=== PATIENT | male | born 1960 | race Caucasian/White ===

== ENCOUNTER 2025-05-03 13:19 | Outpatient (AMB) | payer OTHER, SELFPAY ==
--- NOTE | 2025-05-03 13:24 | MHC.OFFVIS ---
Intake Visit Reasons: Groin pain Intake Note: New Patient is present for groin pain Urology Rx: none PVR:none Blood Thinners:none Imaging completed: none Labs done : PSA 1.96 Tenant Selector Required: No Accompanied by: Self / Same As Patient Allergies No Known Allergies Allergy (Verified 05/03/25 13:25) HPI Comments Details: Ben is a pleasant male. He is a patient of Dr. Vallejo. He is seen for the following urologic conditions - right testicular discomfort - Peyronie's disease Discussed age-related changes to voiding pattern Effective voiding parameters highlighted Reassurance provided regarding testicular pain P.r.n. follow-up PSA 1.9 Testicular discomfort On examination has scarring of testicular head Point discomfort on exam Reassurance provided Anti-inflammatory provided Discussed potential surgical correction Peyronie's disease Minor hourglassing at base of penis Does not interfere with sexual activity Results AMB Urinalysis, Automated UA Leukoctes 0 Diane/uL Last Edit by JESENIA Wilhelm on 05/03/25 16:06 UA Nitrite Negative Last Edit by JESENIA Wilhelm on 05/03/25 16:06 UA Urobilinogen 3.5 mg/dL Last Edit by JESENIA Wilhelm on 05/03/25 16:06 UA Protein 0 mg/dL Last Edit by JESENIA Wilhelm on 05/03/25 16:06 UA pH 6.0 Last Edit by JESENIA Wilhelm on 05/03/25 16:06 UA Blood 0 Binh/uL Last Edit by JESENIA Wilhelm on 05/03/25 16:06 UA Specific [place] 1.015 Last Edit by JESENIA Wilhelm on 05/03/25 16:06 UA Ketone Last Edit by JESENIA Wilhelm on 05/03/25 16:06 UA Bilirubin 0 mg/dL Last Edit by JESENIA Wilhelm on 05/03/25 16:06 UA Glucose 0 mg/dL Last Edit by JESENIA Wilhelm on 05/03/25 16:06 Results Reviewed Results Reviewed: Laboratory Last Values Urine pH (Auto) 6.0 05/03/25 16:06 Specific [place] (Auto) 1.015 05/03/25 16:06 Urine Protein (Auto) 0 mg/dL 05/03/25 16:06 Glucose (UA)(Auto) 0 mg/dL 05/03/25 16:06 Urine Blood (Auto) 0 Binh/uL 05/03/25 16:06 Urine Nitrite (Auto) Negative 05/03/25 16:06 Urine Bilirubin (Auto) 0 mg/dL 05/03/25 16:06 Urine Urobilinogen (Auto) 3.5 mg/dL 05/03/25 16:06 Leukocyte Esterase (Auto) 0 Diane/uL 05/03/25 16:06 Assessment & Plan Assessment & Plan (1) Epididymal pain: Code(s): N50.819 - Testicular pain, unspecified Category: Medical Plan P.r.n. follow-up Orders: Orders AMB Urinalysis Automated Today Z13.9 - Encounter for screening, unspecified Medications: New naproxen (Naprosyn) 500 mg PO Q12H PRN 60 tabs 0RF pain 30 days N50.819 - Testicular pain, unspecified, S39.91XA - Unspecified injury of abdomen, initial encounter Patient Instructions: This note is constructed using voice recognition software. While every effort has been made to ensure accuracy customer support specialist errors may have been included. Imaging studies, laboratory and physical exam results were discussed and reviewed in detail. No major barriers to patient understanding were identified. An opportunity to ask questions regarding the treatment plan was provided. All questions were answered. The patient expressed understanding and agreement with the above treatment plan. The patient is aware they should contact our office by phone for worsening of their current condition or the appearance of new urologic symptoms. Compliance is encouraged with any medications and followup testing that is ordered. It is a privilege to participate in the urologic care of your patient. If you have any questions or concerns regarding treatment for the above conditions, or other urologic issues, please do not hesitate to contact me. The office telephone contact is [phone]. Sincerely, Dr Gregory Roberson MD, MICHELLE [facility] - Urology Compassionate Specialist Care for the Genitourinary System Coding Level of Care Code New Pt Level 3 (70626) Diagnoses Epididymal pain N50.819
--- OUTSIDE RECORDS SUMMARY | 2025-05-03 17:02 | XMS_ITS | Encounter Summary ---
Author Organization [facility] Address [address] [facility] [address] [place] [id number] Phone Care Team Providers Care Grief Counsellor Name Role Phone Abebe Vallejo MD Primary Care Provider [phone] Encounter Details Date Type Department Care Team (Late st Contact Info) Description 2023 Procedure Pass [facility], [facility] [address] [place] [address] Social History Tobacco Use Types Packs/Day Years Used Date Smoking Tobacco: Former Cigarettes 1 10 3 1982 Smokeless Tobacco: Never Alcohol Use Standard Drinks/Week Comments Yes 0 (1 standard drink = 0.6 oz pur e alcohol) 1 bottle of wine daily Child or Family Care Answer Date Record ed Do you have problems with on e of the following making it difficult for you to work, study, or receive health care? No 12/10/2022 Education Answer Date Recorded Are you interested in help w ith more adult education (for example, completing high school, GED, job training, learning the Romansh language, technical skills, or developing parenting skills)? No 12/10/2022 Are you concerned about learning? Not on file 12/10/2022 No 12/10/2022 Yes 12/10/2022 Food Answer Date Recorded Within the past 6 months we worried whether our food would run out before we got money to buy more. Never True 12/10/2022 Within the past 6 months the food we bought just didn't last and we didn't have enough money to get more. Never True Residential Stability Answer Date Recor ded What is your housing situation today? I have paul bennett 12/10/2022 How many times have you move d in the past 12 months? Zero (I did not move) 12/10/2022 Paying for Meds Answer Date Recorded Do you have trouble paying for medicines? Yes 12/10/2022 Paying Utility Bills Answer Date Record ed Do you have trouble paying your heating or elect ricity bill? No 12/10/2022 Transportation Answer Date Recorded Has the lack of transportati on kept you from medical appointments or from getting medications? No 12/10/2022 Unemployment Answer Date Recorded Are you currently unemployed or working on a part-time or temporary basis, and looking for work? Yes 12/28/2020 Digital Access Answer Date Recorded No 12/10/2022 Yes 12/10/2022 Do you have reliable internet access at home? Ye s 12/10/2022 Do you have a device (e.g., phone, tablet, computer) with a working camera? Yes 12/10/2022 Sex and Gender Information Value Date Recorded Sex Assigned at Not on file Legal Sex Male 7:49 PM EST Gender Identity Not on file Sexual Orientation Not on file documented as of this encounter Plan of Treatment Upcoming Encounters Date Type Department Care Team (Late st Contact Info) Description 05/04/2025 3:00 PM EDT Office Visit [facility] [address] [place] [id number] Jessica Hernandez PA-C [address] [place] [address] [facility] [place], [place] [id number] 06/19/2025 8:45 AM EST Office Visit [facility] Internal Medicine [address] [place] [id number] Abebe Vallejo MD [address], [place] [id number] documented as of this encounter Visit Diagnoses Not on filedocumented in this encounter Additional Health Concerns Assessment Noted Time PHQ-2 Depression Total Score: 0 12/11/19 23 9:46 AM EDT documented as of this encounter Care Teams Grief Counsellor Relationship Specialty Start Date End Date Abebe Vallejo MD [address] [place] [address] [email or web address] PCP - General Internal Medicine 10/19/20 documented as of this encounter Additional Source Comments The information contained in this document represents components of the legal health record. It is not the complete legal health record.[facility]
--- OUTSIDE RECORDS SUMMARY | 2025-05-03 17:02 | XMS_ITS | Clinical Summary ---
Author Organization [facility] Address [address] [address] Phone Care Team Providers Care Power Truck Driver Name Role Phone Abebe Vallejo MD Primary Care Provider [phone] Allergies Active Allergy Reactions Criticality Noted Date Comments [employer]rub Pollen 2023 Seasonal allergies Medications sertraline (ZOLOFT) 100 MG tabletIndicati ons:Recurrent major depressive disorder, in full remission TAKE 2 TABLETS BY MOUTH EVERY DAY 180 tablet 3 5 Active traZODone (DESYREL) 50 MG tabletIndicati ons:Recurrent major depressive disorder, in full remission TAKE 1 TABLET BY MOUTH EVERY DAY AT BEDTIME NEEDED 90 tablet 3 5 Active sertraline (ZOLOFT) 100 MG tabletIndicati ons:Recurrent major depressive disorder, in full remission take 2 tablets by mouth every day 180 tablet 3 4 05/01/20 25 Discontinued traZODone (DESYREL) 50 MG tabletIndicati ons:Recurrent major depressive disorder, in full remission take 1 tablet by mouth every day at bedtime as needed 90 tablet 3 4 05/01/20 25 Discontinued Active Problems Problem Noted Date Diagnosed Date Elevated glucose 06/15/2024 Primary insomnia 05/26/2023 Assessment & Plan (05/26/2023 9:47 AM EDT): He states that 1 evening he was unable to take the trazodone because his medication ran out and he had a horrible day the following day requiring that he go home earlier to catch up on sleep. We can continue him on the trazodone as it is written with no need to increase the dose. Preop examination 04/16/2023 Assessment & Plan (04/16/2023 10:04 AM EDT): 63 [address] patient of Dr. Pena with planned right total shoulder replacement on 06/04/23. Procedure risk is intermediate. Patient denies symptoms associated with acute coronary syndromes including unstable or severe angina, AK within 1 month, severe CHF, high grade arrhythmia or symptomatic valvular disease. Medical risk assessment at the surgical optimization clinic are as follows. RIOS cardiovascular risk score is 0.1% risk of myocardial infarction or cardiac arrest, intraoperatively or up to 30 day post-operatively. If <1%, no further cardiac work-up recommended. DASI score was 58.2 points, able to achieve at least 9.89 METS. If DASI >18, no further cardiac testing recommended. NSQIP cardiovascular risk score was below average at 0.1% risk of cardiac complication, and below average at 0.3% risk of VTE. RCRI score was 0.4% risk for cardiovascular event including myocardial infarction, pulmonary edema, arrhythmia, cardiac arrest or complete heart block. This reflects very low risk on the scale. Patient's risk for major adverse cardiac events is low. This meets ACC/AHA guidelines for proceeding to non-cardiac surgery without additional testing. Blood work from 04/14/23 shows a hemoglobin A1c of 5.3%. CBC and BMP are unremarkable with a creatinine of 1.1. EKG from 04/09/23 shows normal sinus rhythm. There is no evidence of acute or prior ischemia. The patient can proceed to the intended procedure without further work-up. He should have standard DVT and antibiotic prophylaxis. The patient was instructed to discontinue use of any NSAIDs, fish oil, turmeric, herbal supplements and multivitamins for 1 week before surgery. The patient does not have any medical conditions which would preclude a same day discharge after joint replacement surgery. Alcohol dependence, daily use 04/16/2023 Assessment & Plan (04/16/2023 9:55 AM EDT): Patient reports drinking 1 bottle of wine nightly for many years. Strongly recommend he try to go 5 to 7 days without an alcoholic beverage at least once before surgery to make sure he has no adverse effects of alcohol dependence. Encouraged limiting alcohol to no more than 1-2 drinks daily in the week before surgery. Sleep apnea 04/16/2023 Assessment & Plan (05/26/2023 9:48 AM EDT): I have advised him to first check his insurance to see if inspire procedure and medical durable equipment is covered by his insurance. Then there is a sleep specialist in [place] that does insert the inspire apparatus we could set up a consult with that specialist once he is determined if that specialist is covered on insurance. Assessment & Plan (04/16/2023 10:06 AM EDT): Patient has history of sleep study/known sleep apnea. He is unable to tolerate CPAP device; does not use any sleep device. He denies excessive daytime fatigue. Consider extended monitoring in PACU prior to discharge. History of dyspnea 04/16/2023 Assessment & Plan (04/16/2023 10:10 AM EDT): Patient reports in 2020 he was having some exertional dyspnea, thought to be related to outdoor allergens/prescribed Albuterol. States that he never used this medication and is no longer having ALLEN or SOB. In retrospect he feels this may have been secondary to Covid infection. He reports good activity tolerance presently: able to climb stairs, works out in the gym/walks a mile on the [place] every evening; during winter he skis out [place] at altitude at [facility], [place] [facility], etc.without any concerning cardiorespiratory symptoms. Routine general medical exam ination at a health care facility 10/25/2019 Assessment & Plan (12/16/2024 9:36 AM EDT): Exam negative for pathology. Good height to weight ratio, mood disorder stable with the sertraline and uses the trazodone for sleep. Will check a PSA today. No need for further lab work this year. Assessment & Plan (12/15/2023 8:50 AM EDT): We can obtain an x-ray of the chest and I am encouraging him to obtain oximeter for home. Perhaps do oximetry with exercise to see if the O2 sats come down substantially with exercise. If the chest x-ray comes back negative with persisting issues and the most recent surgery I would do a PE protocol CT scan. His exam today was unremarkable. On the chest there was no friction rub. Assessment & Plan (12/10/2022 10:48 AM EDT): His exam was unremarkable except for the scar tissue on his right eardrum with corresponding history of childhood ear infections. We can obtain screening labs today for his physical exam and then I will see him back in 6 months to follow-up on depression. He will have the shingles vaccine part 1 today and part 2 in 60 days. Assessment & Plan (12/28/2020 4:15 PM EDT): His exam was unremarkable. He is doing fairly well overall and we would like to see if we could help him with his dyspnea on exertion. Please see above for plan. Otherwise we will do a lipid profile Chem-7 CBC AST ALT and a PSA and I will refer the patient for [facility] 10-year colonoscopy follow-up. If the patient's dyspnea improves markedly with the proair we will get a pulmonary function study and refer to pulmonology. Assessment & Plan (10/25/2019 9:10 AM EDT): Exam is positive for several nevi on the back none that require particular attention but should be controlled at least yearly. Patient is amenable to this. Patient is on a high dose of Zoloft and has been for quite some time, we should monitor his liver function. Patient exercise on a regular basis and appears to have a good diet. We talked about altitude sickness as the patient had recently altitude sickness from a ski trip that he was on. Going forward we can prescribe him a week diuretic to counter the effects for example next year. He will come back for fasting labs including a lipid profile PSA and Chem- 12. On health maintenance he is up-to-date on flu shots which we recommend on a yearly basis and he is up-to-date on his colonoscopy, the last one was age 51 and he is due for the next one in 2 years. Recurrent major depressive disorder, in full rem ission 10/25/2019 Assessment & Plan (12/16/2024 9:35 AM EDT): Patient continues on the sertraline at above-stated dose and seems to be working and no changes to dose for many years. Will continue to monitor every 6 months. Assessment & Plan (06/15/2024 9:31 AM EDT): Major depressive disorder well-controlled with the sertraline and the trazodone helping with insomnia, patient compliant with treatment and treatment working well. Will follow-up on physical exam in 6 months with prior labs. In regards to the elevated blood sugar will obtain a hemoglobin A1c today. Most likely the 150 mg/dL blood sugar was due to nonfasting status. Assessment & Plan (12/15/2023 8:47 AM EDT): Mood is stable on the Zoloft, continue as before. Assessment & Plan (05/26/2023 9:46 AM EDT): Depression is well managed and we can maintain the sertraline at 200 mg daily and follow-up in 6 months. Assessment & Plan (04/16/2023 9:58 AM EDT): Reports stable mood, no SI/HI. No longer follows with counselor. No hospitalizations for mental health diagnosis. Long-term medical management on sertraline 200 mg PO nightly and trazodone 50 mg PO nightly. Instructed to continue on these medications perioperatively. Assessment & Plan (12/10/2022 10:47 AM EDT): Depression appears to be in good control with the Zoloft at 200 mg. We will maintain and follow-up with him in 6 months. Assessment & Plan (07/03/2021 6:58 PM EST): His anxiety is well controlled with the Zoloft at 200 mg daily. The trazodone is helping him with his sleep. We can maintain him on the current dosing and then follow-up with him in 6 months for physical with prior labs. Assessment & Plan (03/05/2020 5:30 PM EDT): Depression appears to be held in check with the sertraline and so we can monitor this every 6 months and continue also the trazodone which helps a little bit for sleep. Assessment & Plan (10/25/2019 9:08 AM EDT): Depression appears to be well managed with Zoloft now since many years. Given the stability with which the patient functions we can see the patient on a yearly basis as an exception to the rule. Resolved Problems Problem Noted Date Diagnosed Date Resolved Date ALLEN (dyspnea on exertion) 03/05/2020 Assessment & Plan (07/03/2021 6:57 PM EST): Dyspnea on exertion appears to be more outside than indoors, possibly associated with some allergens. Continue to have the albuterol prescribed and if you are going to exercise outside use the albuterol prior to exercise. If more wheeziness noted and albuterol used more often then consider steroid inhaler. Assessment & Plan (12/28/2020 4:14 PM EDT): His exam was negative for any signs of heart failure but also negative for any signs of wheezing or rhonchi. Still what he is describing sounds suspicious for a subtle allergy that is causing bronchospasms. He will trial some proair before exerting himself and see how that works. This will prompt need to get the patient a pulmonary function study which he agreed to. I like to hold off until he gets the proair and then we can follow-up with him here in the office otherwise I will see him back in 6 months in follow-up of his Zoloft which he takes for ERIC. Assessment & Plan (03/05/2020 5:32 PM EDT): This patient is getting dyspnea on exertion it seems to be a pulmonary issue. Hence we will obtain a pulmonary function study to assess if the patient asthmatic or has COPD. Assessing also for lung restrictions. The patient can have the pulmonary function study done at [facility]. Based on the study results we can refer the patient or start him on inhalers appropriately. Great toe pain, right 03/05/20202022 Right groin pain 02/06/2020 04/16/2023 Assessment & Plan (05/26/2023 9:49 AM EDT): We will obtain the ultrasound scrotal that was done at [facility] and determine if there is a cyst in the epididymis and then coordinate with the patient and [facility] to see if he needs surgery. Assessment & Plan (03/05/2020 5:33 PM EDT): It would have been nice to examine the groin region but from what he is describing it sounds like abduction at the level of the hip is painful perhaps related to a sprain. In any case it is been going on long enough where the patient would like to be referred to an orthopedist. Referral to Dr. May at [facility] for orthopedic consult. Rotator cuff syndrome of right shoulder 04/22/2013 04/16/2023 Overview (10/25/2019): Impingement syndrome 25 y/a rotator cuff injury, up to 10/2019 no interventions. Assessment & Plan (05/26/2023 9:47 AM EDT): The patient's exam today is negative for pathology with stable blood pressure. He can proceed to the shoulder surgery without any need for further cardiovascular testing. He is a good candidate for surgery. Encounters Date Type Department Care Team Description 04/29/2025 Refill [facility] Internal [facility] [address] [place] [address] Abebe Vallejo MD Medication Refill 03/09/2025 Telephone [facility] [address] [place] [address] Marilu Velasqeuz Referral from Last 3 Months Immunizations Immunization Administration Dates Next Due COVID-19 (Pre-06/08) Pfizer Vaccine, mRNA, PF 06/03/2024,12/16/2020,11/25/2020 INFLUENZA, SPLIT VIRUS, TRIVALENT PF 06/03/2024 Influenza Quadrivalent Preservative Free IM 05/18,06/28/2020 Td (adult) 5 Lf Tetanus Toxo id, PF, Adsorbed 12/15/2023 Tdap 02/09/2009 Zoster recombinant 05/26/2023,12/10/2022 Family History Medical History Relation Comments Squamous cell carcinoma Brother 1 Testicular cancer Brother 2 COPD Mother Transient ischemic attack Mother Ovarian cancer Sister 1 No Known Problems Sister 2 Obesity Son 1 Relation Status Comments Brother 1 Brother 2 Alive Father Alive Mother Sister 1 Alive Sister 2 Alive Son 1 Alive Son 2 Alive Social History Tobacco Use Types Packs/Day Years Used Date Smoking Tobacco: Former Cigarettes 1 10 1982 Smokeless Tobacco: Never Tobacco Cessation:Counseling Given: Not Answered Alcohol Use Standard Drinks/Week Comments Yes 0 (1 standard drink = 0.6 oz pur e alcohol) 1 bottle of wine daily Child or Family Care Answer Date Record ed Do you have problems with on e of the following making it difficult for you to work, study, or receive health care? No 12/16/2024 Education Answer Date Recorded Are you interested in help w ith more adult education (for example, completing high school, GED, job training, learning the Japanese language, technical skills, or developing parenting skills)? No 12/16/2024 Are you concerned about learning? Not on file 12/16/2024 No 12/16/2024 Yes 12/16/2024 Food Answer Date Recorded Within the past 6 months we worried whether our food would run out before we got money to buy more. Never True 12/16/2024 Within the past 6 months the food we bought just didn't last and we didn't have enough money to get more. Never True Residential Stability Answer Date Recor ded What is your housing situation today? I have paul sing 12/16/2024 How many times have you move d in the past 12 months? Zero (I did not move) 12/16/2024 Paying for Meds Answer Date Recorded Do you have trouble paying for medicines? No 12/16/2024 Paying Utility Bills Answer Date Record ed Do you have trouble paying your heating or elect ricity bill? No 12/16/2024 Transportation Answer Date Recorded Has the lack of transportati on kept you from medical appointments or from getting medications? No 12/16/2024 Unemployment Answer Date Recorded Are you currently unemployed or working on a part-time or temporary basis, and looking for work? Yes 12/28/2020 Digital Access Answer Date Recorded No 12/16/2024 Yes 12/16/2024 Do you have reliable internet access at home? Ye s 12/16/2024 Do you have a device (e.g., phone, tablet, computer) with a working camera? Yes 12/16/2024 Intimate Partner Violence Answer Date R ecorded Are you denied basic needs s uch as food, clothing, or medical care? No 12/16/2024 In the past 12 months have y ou been in a relationship with a person who hurts, threatens, or tries to control you? No 12/16/2024 Are you denied basic needs s uch as food, clothing, or medical care? No 12/16/2024 In the past 12 months have y ou been in a relationship with a person who hurts, threatens, or tries to control you? No 12/16/2024 Sex and Gender Information Value Date Recorded Sex Assigned at Not on file Legal Sex Male 7:49 PM EST Gender Identity Not on file Sexual Orientation Not on file Last Filed Vital Signs Vital Sign Reading Time Taken Comments Blood Pressure 112/68 12/16/2024 8:52 AM EDT Pulse 67 12/16/2024 8:52 AM EDT Temperature 36.2 C (97.1 F) 12/16/2024 8:52 AM EDT Respiratory Rate 16 12/16/2024 8:52 AM EDT Oxygen Saturation 96% 12/16/2024 8:52 AM EDT Inhaled Oxygen Concentration - - Weight 76.1 kg (167 lb 12.8 oz) 12/16/2024 8:52 AM EDT Height 173.1 cm (5' 8.15 ) 12/16/2024 8:52 AM ED T Body Mass Index 25.4 12/16/2024 8:52 AM EDT Plan of Treatment Upcoming Encounters Date Type Department Care Team (Late st Contact Info) Description 05/04/2025 3:00 PM EDT Office Visit [facility] [address] [place] [phone] Jessica Hernandez PA-C [address] [place] [address] [facility] [place] [address] 06/19/2025 8:45 AM EST Office Visit [facility] [address] [place] [address] Abebe Vallejo MD [address] [place] [address] [email or web address] Health Maintenance Due Date Last Done Comments PNEUMOCOCCAL VACCINES (50+ years) (1 of 2 - PCV) 02/17/1980 COLOGUARD 2006 FIT TEST 2006 FOBT 2006 SIGMOIDOSCOPY 2006 VIRTUAL COLONOSCOPY 2006 INFLUENZA VACCINE (#1) 2025 , 06/09/2021, 06/28/2020 COVID-19 VACCINE ( season) 2025 06/03/2024, 06/03/2024, 06/27/2022, Additional history exists DEPRESSION SCREENING 12/16/2025 12/16/2024 SCREENING FOR DIABETES 06/15/2027 , 10/29/2023, 09/30/2017 LIPID PANEL 06/15/2029 06/15/2024, 11/16, 04/04/2020, Additional history exists COLONOSCOPY 05/31/2031 05/31/2021 COLORECTAL CANCER SCREENING 05/31/2031 Adult Td,Tdap Booster 12/14/2033 12/15/2023, 009 RSV VACCINE (1 - 1-dose 75+ series) 02/17/2036 HEPATITIS C SCREENING Completed 12/10/2022 HIV ONE-TIME SCREENING (18-65 YEARS) Completed 12/10/2022 ZOSTER VACCINES Completed 05/26/2023, 12/10/2022 SMOKING STATUS SCREENING (Once After 26 Yrs) Completed 12/16/2024 HEPATITIS A VACCINES Aged Out No long er eligible based on patient's age to complete this topic HIB VACCINES Aged Out No longer eligi ble based on patient's age to complete this topic MENINGOCOCCAL VACCINES (ACWY) Aged Out No longer eligible based on patient's age to complete this topic MENINGOCOCCAL VACCINES (B) Aged Out N o longer eligible based on patient's age to complete this topic Medical Devices Implanted Type Area Mri Supervisor Device Identifier Shelf Expiration Date Model / Serial / Lot Lens Lens Bilateral: Eye Mesh Mesh Abdomen Pin Pin Right: Toe Cement Bone 1x40 Standard - [id number] Implanted:Qty: 1 on 10/29/2023 by Kevin Pena DO at [facility] Right: Shoulder [employer] 03/16/2026 [id number] / / [id number] Shoulder Implant 40mm Md Component Glenoid Aequalis Perform Cortiloc - [id number] Implanted:Qty: 1 on 10/29/2023 by Kevin Pena DO at [facility] Right: Shoulder [employer] 05/28/2028 [id number] / [id number] / Shoulder Simpliciti Size 3 Nucleus Humeral System - [id number] Implanted:Qty: 1 on 10/29/2023 by Kevin Pena DO at [facility] Right: Shoulder [employer] 01/23/2028 [id number] / [id number] / Shoulder [id number] Prosthesis Simpliciti - [id number] Implanted:Qty: 1 on 10/29/2023 by Kevin Pena DO at [facility] Right: Shoulder [employer] 07/07/2027 [id number] / [id number] / System Suspension Fiberlock - [id number] Implanted:Qty: 1 on 01/05/2024 by Madi Szymanski MD at [facility] Right: Finger [employer] [id number] 09/16/2028 [id number] / / [id number] Graft Tissue 0.76 To 1.24mm 4.0 Xcm Dermis Decellularized Thickness Room Temp - [id number] Implanted:Qty: 1 on 01/05/2024 by Madi Szymanski MD at [facility] Right: Finger [facility] [id number] 06/05/2026 [id number] / [id number] / Procedures Procedure Name Priority Date/Time Associated Diagnosis Comments LIPID PANEL Routine 06/15/2024 9:43 AM EDT Routine general medical examination at a health care facility HEPATITIS C ANTIBODY, QUALITATIVE Routine 12/10/2022 11:20 AM EDT Need for hepatitis C screening test HM COLONOSCOPY FOR RESULT ENTRY ONLY Routine 05/31/2021 OUTSIDE GLUCOSE FASTING Routine 09/30/2017 from Last 3 Months or Most Recently Relevant to Health Maintenance Results * (ABNORMAL) Lipid panel (06/15/2024 9:43 AM EDT) HDL 106 mg/dL [facility] Comment: Interpretation <40 mg/dL: Low HDL cholesterol (major risk factor for CHD) Greater than or equal to 60 mg/dL: High HDL cholesterol ( negative risk factor for CHD) HDL - cholesterol is affected by a number of factors, e.g. smoking, excerise, hormones, sex and age. CHOLESTEROL 254(H) 0 - 240 mg/dL [facility] TRIGLYCERIDES 80 30 - 160 mg/dL [facility] LDL 132(H) 50 - 129 mg/dL [facility] Comment: LDL levels in terms of risk for coronary heart disease: <100 mg/dL: Optimal 100-129 mg/dL: Near or above optimal 130-159 mg/dL: Borderline high 160-189 mg/dL: High >190 mg/dL: Very High CARDIAC RISK RATIO 2.4(L) 3.4 - 5.0 C [facility] Blood 06/15/2024 9:43 AM EDT 06/15/2024 9:47 AM EDT us Abebe Vallejo MD LAB BLOOD ORDERABLES Final Resul t [facility] [address] [place] [address] * Hepatitis C antibody, qualitative (12/10/2022 11:20 AM EDT) HCV NON-REACTIV E NON-REACTI VE [facility] Blood 12/10/2022 11:2 0 AM EDT 12/10/2022 11:25 AM EDT us Abebe Vallejo MD LAB BLOOD ORDERABLES Final Resul t [facility] [address] [place] [address] * HM COLONOSCOPY FOR RESULT ENTRY ONLY (05/31/2021) Historical Provider HEALTH MAINTENANCE Edited Result - Final * Outside Glucose,Fasting (09/30/2017) Pathologist [facility] Glucose, fasting - External 89 65 - 99 mg/dL Historical Provider LAB BLOOD ORDERABLES Marychuy l Result from Last 3 Months or Most Recently Relevant to Health Maintenance Insurance [employer] HMO POS EPO [facility] POS EPO [facility] EPO [facility] POS EPO [facility] POS EPO [facility] POS EPO [facility] POS EPO [facility] POS EPO [facility] POS EPO Advance Directives For more information, please contact: [phone] (9AM - 5PM Michelle/[facility], Thursday-Thursday) Documents on File Type Date Recorded Patient Skin Care Consultant Expl anation Healthcare Proxy 10/30/2023 1:15 PM * Full Code (Latest Code Status on File) Date Activated Date Inactivated Comments 01/05/2024 6:48 AM Question Answer Comments Code Status Confirmed With: Patient Care Teams Power Truck Driver Relationship Specialty Start Date End Date Abebe Vallejo MD [address] [place] [phone] [email or web address] PCP - General Internal Medicine 10/19/20 Additional Source Comments The information contained in this document represents components of the legal health record. It is not the complete legal health record.[facility]
--- OUTSIDE RECORDS SUMMARY | 2025-05-03 17:02 | XMS_ITS | Encounter Summary ---
Author Organization [facility] Address [address] [address] Phone Care Team Providers Care Laryngologist Name Role Phone Abebe Vallejo MD Primary Care Provider [phone] Reason for Referral * Consultation (Within 1 month) - Authorized Specialty Diagnoses / Procedures Referred By Tonya posey Referred To Contact Diagnoses Groin pain Estephanie Arcos PA-C [address] [place] [phone] Phone: tel: fax: [email or web address] Gregory Roberson MD [address] [place] [address] Dr MckennayoMARGARETTE parsons [address] Phone: tel: fax: Referral ID Status Reason Start Date Expiration Date V isits Requested Visits Authorized [id number] Authorized 03/09/2025 03/09/2026 6 6 Scheduling Instructions [facility] Reason for Visit * Reason Onset Date Comments Referral 03/09/2025 Encounter Details Date Type Department Care Team ([facility] Contact Info) Description 03/09/2025 Telephone [facility] [address] [place] [address] [email or web address] Referral Social History Tobacco Use Types Packs/Day Years Used Date Smoking Tobacco: Former Cigarettes 1 1982 Smokeless Tobacco: Never Alcohol Use Standard [...] high school, GED, job training, learning the Cymro language, technical skills, or developing parenting skills)? [...] your housing situation today? I have paul donald 12/16/2024 How many times have you move [...] on file documented as of this encounter Progress Notes * Kiya Encinas - 03/10/2025 10:39 AM EDT Referral, OV Note, Demographics faxed to Urology [phone]/confirmation received * Estephanie Arcos PA-C - 03/09/2025 2:24 PM EDT Referral signed. Nahomy Arcos PA-C Virtual Clinic Support * Mona Leblanc - 03/09/2025 2:15 PM EDT Received call from pt's , [place]. She is calling to provide the following information: Central Support Glassie (Please do not reply to this user; this inbox is not monitored.) Thank you. * Marilu Velasquez - 03/09/2025 12:29 PM EDT [facility] Top Smart Phrases: Referral Request 1. Name of the office where the patient has been seen/requests to be seen: [facility] 2. Reason for referral/specialist appointment and the diagnosis code: groin pain 2A. Have you seen this provider before for this same problem? YES/NO: N/A 2B. If this is a new problem, is your PCP aware of your symptoms? YES/NO: N/A 3. Date of appointment(s):referral first 4. Name of specialist provider: Dr. Gregory Posey 5. NPI number to enter for referral authorization (enter n/a if not available): N/A 6. Number of visits requested for referral: N/A 7. Fax number of specialist office to send referral authorization: N/A Caller will call back with NPI and fax number. Central Support Glassie (Please do not reply to this user; this inbox is not monitored.) Thank you. documented in this encounter Plan of Treatment Upcoming Encounters Date Type Department Care Team (Late st Contact Info) Description 05/04/2025 3:00 PM EDT Office Visit [facility] Orthopedics & Sports Medicine [address] [place] [address] Jessica Hernandez PA-C [address] [place] [address] Orthopedics & Sports Medicine, [place] [address] 06/19/2025 8:45 AM EST Office Visit [facility] Internal Medicine [address] [place] [address] Abebe Vallejo MD [address] [place] [address] [email or web address] Scheduled Referrals Name Type Priority Associated Diagnoses Order Schedule Ambulatory referral to External Urology Outpatient Referral Routine Groin pain Ordered: 03/09/2025 documented as of this encounter Visit Diagnoses Diagnosis Groin pain- Primary Abdominal pain, unspecified site documented in this encounter Additional Health Concerns Assessment Noted Time PHQ-2 Depression Total Score: 0 12/17/19 25 8:47 AM EDT documented as of this encounter Care Teams Laryngologist Relationship Specialty Start Date End Date Abebe Vallejo MD [address] [place] [address] [email or web address] PCP - General Internal Medicine 10/19/20 documented as of this encounter Additional Source Comments The information contained in this document represents components of the legal health record. It is not the complete legal health record.[facility]
--- OUTSIDE RECORDS SUMMARY | 2025-05-03 17:02 | XMS_ITS | Encounter Summary ---
Author Organization [facility] Address [address] [employer] [address] [address] Phone Care Team Providers Care Lunchroom Supervisor Name Role Phone Abebe Vallejo MD Primary Care Provider [phone] Reason for Visit * Reason Comments Medication Refill Encounter Details Date Type Department Care Team (Late st Contact Info) Description 04/29/2025 Refill [facility] [place] Internal Medicine [address] [place], [place] [address] Abebe Vallejo MD [address] [place] [address] [email or web address] Medication Refill Social History Tobacco Use Types Packs/Day Years Used Date Smoking Tobacco: Former Cigarettes 1 10 973 - 1982 Smokeless Tobacco: Never Alcohol Use Standard [...] high school, GED, job training, learning the Slovak language, technical skills, or developing parenting skills)? [...] as of this encounter Progress Notes * Carin Carr MA - 05/01/2025 9:31 AM EDT Rx Care Gap Status - Instructions for Clinical Staff (prescriber discretion applies): > Mismatch review guide > N/a - No action needed Visit Info Last visit: 12/16/2024 Abebe Vallejo MD - Internal Medicine [facility] > Requested f/u: Return in about 6 months (around 06/18/2025) for Recheck. Upcoming visit: 06/19/2025 Abebe Vallejo MD - Internal Medicine [facility] ACTIONS TAKEN BY Carin Carr MA - Criteria met. Antidepressant / Anxiolytics (Non-Benzodiazepine) Rx Protocol - sertraline HCl Criteria met; renew for up to 12 months. Visit in the past 14 months: Yes Insomnia (Non-Controlled) Rx Protocol - trazodone HCl Criteria met; renew for up to 12 months. Visit in the past 24 months: Yes documented in this encounter Plan of Treatment Upcoming Encounters Date Type Department Care Team (Late st Contact Info) Description 05/04/2025 3:00 PM EDT Office Visit [facility] Orthopedics & Sports Medicine [address] [place] [address] Jessica Hernandez PA-C [address] [place] [address] Orthopedics & Sports Medicine, [facility] [place] [address] 06/19/2025 8:45 AM EST Office Visit [facility] Internal Medicine [address] [place] [address] Abebe Vallejo MD [address] [place] [address] [email or web address] documented as of this encounter Visit Diagnoses Diagnosis Recurrent major depressive disorder, in full remission documented in this encounter Additional Health Concerns Assessment Noted Time PHQ-2 Depression Total Score: 0 12/17/19 25 8:47 AM EDT documented as of this encounter Care Teams Lunchroom Supervisor Relationship Specialty Start Date End Date Abebe Vallejo MD [address] [place] [address] [email or web address] PCP - General Internal Medicine 10/19/20 documented as of this encounter Additional Source Comments The information contained in this document represents components of the legal health record. It is not the complete legal health record.[facility]
--- OUTSIDE RECORDS SUMMARY | 2025-05-03 17:02 | XMS_ITS | Encounter Summary ---
Author Organization [facility] Address [address] [facility] [address] [place] [address] Phone Care Team Providers Care Respiratory Clinician Name Role Phone Abebe Vallejo MD Primary Care Provider [phone] Encounter Details Date Type Department Care Team (Late st Contact Info) Description 12/31/2023 Procedure Pass [facility], Ct Scan - [facility] [address] [place] [address] Social History Tobacco Use Types Packs/Day Years Used Date Smoking Tobacco: Former Cigarettes 1 10 1 973 - 1982 Smokeless Tobacco: Never Alcohol Use Standard Drinks/Week Comments Yes 0 (1 standard drink = 0.6 oz pur e alcohol) 1 bottle of wine daily Child or Family Care Answer Date Record ed Do you have problems with on e of the following making it difficult for you to work, study, or receive health care? No 12/15/2023 Education Answer Date Recorded Are you interested in help w ith more adult education (for example, completing high school, GED, job training, learning the Telugu language, technical skills, or developing parenting skills)? No 12/15/2023 Are you concerned about learning? Not on file 12/15/2023 No 12/15/2023 Yes 12/15/2023 Food Answer Date Recorded Within the past 6 months we worried whether our food would run out before we got money to buy more. Never True 12/15/2023 Within the past 6 months the food we bought just didn't last and we didn't have enough money to get more. Never True Residential Stability Answer Date Recor ded What is your housing situation today? I have paul bennett 12/15/2023 How many times have you move d in the past 12 months? Zero (I did not move) 12/15/2023 Paying for Meds Answer Date Recorded Do you have trouble paying for medicines? No 12/15/2023 Paying Utility Bills Answer Date Record ed Do you have trouble paying your heating or elect ricity bill? No 12/15/2023 Transportation Answer Date Recorded Has the lack of transportati on kept you from medical appointments or from getting medications? No 12/15/2023 Unemployment Answer Date Recorded Are you currently unemployed or working on a part-time or temporary basis, and looking for work? Yes 12/28/2020 Digital Access Answer Date Recorded No 12/15/2023 Yes 12/15/2023 Do you have reliable internet access at home? Ye s 12/15/2023 Do you have a device (e.g., phone, tablet, computer) with a working camera? Yes 12/15/2023 Intimate Partner Violence Answer Date R ecorded Are you denied basic needs s uch as food, clothing, or medical care? No 12/15/2023 In the past 12 months have y ou been in a relationship with a person who hurts, threatens, or tries to control you? No 12/15/2023 Are you denied basic needs s uch as food, clothing, or medical care? No 12/15/2023 In the past 12 months have y ou been in a relationship with a person who hurts, threatens, or tries to control you? No 12/15/2023 Sex and Gender Information Value Date Recorded Sex Assigned at Not on file Legal Sex Male 7:49 PM EST Gender Identity Not on file Sexual Orientation Not on file documented as of this encounter Plan of Treatment Upcoming Encounters Date Type Department Care Team (Late st Contact Info) Description 05/04/2025 3:00 PM EDT Office Visit [facility] Orthopedics & Sports Medicine [address] [place] [address] Jessica Hernandez PA-C [address] [place] [address] Orthopedics & Sports Medicine, [facility] [place] [address] [email or web address] 06/19/2025 8:45 AM EST Office Visit [facility] Internal Medicine [address] [place] [address] Abebe Vallejo MD [address] [place] [address] [email or web address] documented as of this encounter Visit Diagnoses Not on filedocumented in this encounter Additional Health Concerns Assessment Noted Time PHQ-2 Depression Total Score: 0 12/15/19 24 7:57 AM EDT documented as of this encounter Care Teams Respiratory Clinician Relationship Specialty Start Date End Date Abebe Vallejo MD [address] [place] [address] PCP - General Internal Medicine 10/19/20 documented as of this encounter Additional Source Comments The information contained in this document represents components of the legal health record. It is not the complete legal health record.[facility]
--- OUTSIDE RECORDS SUMMARY | 2025-05-03 17:02 | XMS_ITS | Encounter Summary ---
Author Organization [facility] Address [address] [facility] [address] [place] [address] Phone Care Team Providers Care Trade Show Specialist Name Role Phone Abebe Vallejo MD Primary Care Provider [phone] Encounter Details Date Type Department Care Team (Late st Contact Info) Description 01/05/2024 Procedure Pass [place] Admitting Dept - Virtual Department [address] [place] [address] Social History Tobacco Use Types Packs/Day Years [...] high school, GED, job training, learning the Persian language, technical skills, or developing parenting skills)? [...] Description 05/04/2025 3:00 PM EDT Office Visit [facility] Orthopedics & Sports Medicine [address] [place] [address] Jessica Hernandez PA-C [address] [place] [address] Orthopedics & Sports Medicine, [place] [address] 06/19/2025 8:45 AM EST Office Visit [facility] Internal Medicine [address] [place] [address] Abebe Vallejo MD [address] [place] [address] [email or web address] documented as of this encounter Visit Diagnoses Not on filedocumented in this encounter Additional Health Concerns Assessment Noted Time PHQ-2 Depression Total Score: 0 12/15/19 24 7:57 AM EDT documented as of this encounter Care Teams Trade Show Specialist Relationship Specialty Start Date End Date Abebe Vallejo MD [address] [place] [address] [email or web address] PCP - General Internal Medicine 10/19/20 documented as of this encounter Additional Source Comments The information contained in this document represents components of the legal health record. It is not the complete legal health record.[facility]
--- OUTSIDE RECORDS SUMMARY | 2025-05-03 17:02 | XMS_ITS | Encounter Summary ---
Author Organization [facility] Address [address] [employer] [facility] [address] [place] [address] Phone Care Team Providers Care Air Conditioner Installer Helper Name Role Phone Abebe Vallejo MD Primary Care Provider [phone] Encounter Details Date Type Department Care Team (Late st Contact Info) Description 09/12/2022 Ancillary Orders [facility], X-Ray - [facility] [address] [place] [address] Al Mcgowan, DO [address] [place] [address] Hip pain Social History Tobacco Use Types Packs/Day Years [...] to work, study, or receive health care? I choose not to answer 12/28/2020 Education Answer Date Recorded Are you interested in help w ith more adult education (for example, completing high school, GED, job training, learning the St Helen[place] language, technical skills, or developing parenting skills)? No 12/28/2020 Food Answer Date Recorded Within the past 6 months we worried whether our food would run out before we got money to buy more. Never True 12/28/2020 Within the past 6 months the food we bought just didn't last and we didn't have enough money to get more. Never True Paying for Meds Answer Date Recorded Do you have trouble paying for medicines? I aristides se not to answer 12/28/2020 Paying Utility Bills Answer Date Record ed Do you have trouble paying y our heating or electricity bill? I choose not to answer 12/28/2020 Transportation Answer Date Recorded Has the lack of transportati on kept you from medical appointments or from getting medications? No 12/28/2020 Unemployment Answer Date Recorded Are you currently unemployed or working on a part-time or temporary basis, and looking for work? Yes 12/28/2020 Sex and Gender Information Value Date Recorded Sex Assigned at Not on file Legal Sex Male 7:49 PM EST Gender Identity Not on file Sexual Orientation Not on file documented as of this encounter Plan of Treatment Upcoming Encounters Date Type Department Care Team (Late st Contact Info) Description 05/04/2025 3:00 PM EDT Office Visit [facility] Orthopedics & Sports Medicine [address] [place] [address] Jessica Hernandez PA-C [address] [place] [address] Orthopedics & Sports Medicine, [place] [address] 06/19/2025 8:45 AM EST Office Visit [facility] Internal Medicine [address] [place] [address] Abebe Vallejo MD [address] [place] [address] [email or web address] documented as of this encounter Results * XR HIP 2 VW LEFT PLUS PELVIS (09/12/2022 3:32 PM EST) Anatomical Region Laterality Modality Hip, Pelvis Computed Radiogr aphy 09/13/2022 11:2 8 PM EST Impressions 09/13/2022 11:29 PM EST Mild to moderate left hip osteoarthritis. Narrative 09/13/2022 11:29 PM EST XR HIP 2 VW LEFT PLUS PELVIS COMPARISON: None FINDINGS: PELVIS: Pelvic ring intact. No displaced fracture. Mild degenerative changes of the sacroiliac joints and pubic symphysis. Surgical tacks in the right lower quadrant, possibly from prior hernia repair. RIGHT HIP: Mild hip joint space narrowing with marginal spurring. LEFT HIP: Mild to moderate hip joint space narrowing with marginal spurring. Procedure Note Sorin Stephens MD - 09/13/2022 XR HIP 2 VW LEFT PLUS PELVIS COMPARISON: None FINDINGS: PELVIS: Pelvic ring intact. No displaced fracture. Mild degenerativechanges of the sacroiliac joints and pubic symphysis. Surgical tacks inthe right lower quadrant, possibly from prior hernia repair. RIGHT HIP: Mild hip joint space narrowing with marginal spurring. LEFT HIP: Mild to moderate hip joint space narrowing with marginalspurring. IMPRESSION: Mild to moderate left hip osteoarthritis. Al Mcgowan DO IMG XR PELVIS Final Result documented in this encounter Visit Diagnoses Diagnosis Hip pain Pain in joint, pelvic region and thigh Hip pain Pain in joint, pelvic region and thigh documented in this encounter Care Teams Air Conditioner Installer Helper Relationship Specialty Start Date End Date Abebe Vallejo MD [address] [place] [address] [email or web address] PCP - General Internal Medicine 10/19/20 documented as of this encounter Additional Source Comments The information contained in this document represents components of the legal health record. It is not the complete legal health record.[facility]
--- OUTSIDE RECORDS SUMMARY | 2025-05-03 17:02 | XMS_ITS | Encounter Summary ---
Author Organization [facility] Address [address] [facility] [address] [place] [address] Phone Care Team Providers Care Coating And Embossing Unit Operator Name Role Phone Abebe Vallejo MD Primary Care Provider [phone] Encounter Details Date Type Department Care Team (Late st Contact Info) Description 06/19/2023 Procedure Pass OR Admitting Dept - Virtual Department [address] [place] [address] Social History Tobacco Use Types Packs/Day Years [...] Description 05/04/2025 3:00 PM EDT Office Visit [facility] Orthopedics & Sports Medicine [address] [place] [address] Jessica Hernandez PA-C [address] [place] [address] Orthopedics & Sports Medicine, [facility] [place] [address] 06/19/2025 8:45 AM EST Office Visit [facility] Internal Medicine [address] [place] [address] Abebe Vallejo MD [address] [place] [address] documented as of this encounter Visit Diagnoses Not on filedocumented in this encounter Additional Health Concerns Assessment Noted Time PHQ-2 Depression Total Score: 0 12/11/19 23 9:46 AM EDT documented as of this encounter Care Teams Coating And Embossing Unit Operator Relationship Specialty Start Date End Date Abebe Vallejo MD [address] [place] [address] [email or web address] PCP - General Internal Medicine 10/19/20 documented as of this encounter Additional Source Comments The information contained in this document represents components of the legal health record. It is not the complete legal health record.[facility]
--- OUTSIDE RECORDS SUMMARY | 2025-05-03 17:02 | XMS_ITS | Encounter Summary ---
Author Organization [facility] Address [address] [address] Phone Care Team Providers Care Patch Setter Name Role Phone Abebe Vallejo MD Primary Care Provider [phone] Encounter Details Date Type Department Care Team (Late st Contact Info) Description 12/14/2023 Prep for Surgery [facility] Orthopedics & Sports Medicine [address] [place] [address] Madi Szymanski MD [address] [place] [address] [email or web address] Arthritis of carpometacarpal (CMC) joint of thumb (Primary Dx) Social History Tobacco Use Types Packs/Day Years Used Date Smoking Tobacco: Former Cigarettes 1 10 973 1982 Smokeless Tobacco: Never Alcohol Use Standard [...] Description 05/04/2025 3:00 PM EDT Office Visit [facility] Orthopedics & Sports Medicine [address] [place] [address] Jessica Hernandez PA-C [address] [place] [address] Orthopedics & Sports Medicine, [facility] [place] [address] [email or web address] 06/19/2025 8:45 AM EST Office Visit [facility] Internal Medicine [address] [place] [address] Abebe Vallejo MD [address] [place] [address] [email or web address] documented as of this encounter Visit Diagnoses Diagnosis Arthritis of carpometacarpal (CMC) joint of thumb- Primary documented in this encounter Additional Health Concerns Assessment Noted Time PHQ-2 Depression Total Score: 0 12/11/19 23 9:46 AM EDT documented as of this encounter Care Teams Patch Setter Relationship Specialty Start Date End Date Abebe Vallejo MD [address] [place] [address] [email or web address] PCP - General Internal Medicine 10/19/20 documented as of this encounter Additional Source Comments The information contained in this document represents components of the legal health record. It is not the complete legal health record.[facility]
--- OUTSIDE RECORDS SUMMARY | 2025-05-03 17:02 | XMS_ITS | Encounter Summary ---
Author Organization [facility] Address [address] [facility] [address] [place] [phone] Phone Care Team Providers Care Communication Center Coordinator Name Role Phone Abebe Vallejo MD Primary Care Provider [phone] Encounter Details Date Type Department Care Team (Late st Contact Info) Description 10/29/2023 Procedure Pass OR Admitting Dept - Virtual Department [address] [place] [address] Social History Tobacco Use Types Packs/Day Years Used Date Smoking Tobacco: Former Cigarettes 1 10 1 973 1982 Smokeless Tobacco: Never Alcohol Use [...] high school, GED, job training, learning the Frisian language, technical skills, or developing parenting skills)? [...] Description 05/04/2025 3:00 PM EDT Office Visit [facility] Medicine [address] [place] [phone] Jessica Hernandez PA-C [address] [place] [address] Orthopedics & Sports Medicine, [facility] [place] [address] 06/19/2025 8:45 AM EST Office Visit [facility] Internal Medicine [address] [place] [address] Abebe Vallejo MD [address] [place] [address] documented as of this encounter Visit Diagnoses Not on filedocumented in this encounter Additional Health Concerns Assessment Noted Time PHQ-2 Depression Total Score: 0 12/11/19 23 9:46 AM EDT documented as of this encounter Care Teams Communication Center Coordinator Relationship Specialty Start Date End Date Abebe Vallejo MD [address] [place] [phone] [email or web address] PCP - General Internal Medicine 10/19/20 documented as of this encounter Additional Source Comments The information contained in this document represents components of the legal health record. It is not the complete legal health record.[facility]
--- OUTSIDE RECORDS SUMMARY | 2025-05-03 17:02 | XMS_ITS | Encounter Summary ---
Author Organization [facility] Address [address] [facility] [address] [place] [phone] Phone Care Team Providers Care Fast Food Attendant Name Role Phone Abebe Vallejo MD Primary Care Provider [phone] Encounter Details Date Type Department Care Team (Late st Contact Info) Description 09/12/2022 Ancillary Orders [facility], X-Ray - [facility] [place] [address] [place] [address] Al Mcgowan, DO [address] [place] [address] [email or web address] Injury of muscle or tendon of right rotator cuff; Hip pain; Pain Social History Tobacco Use Types Packs/Day Years [...] high school, GED, job training, learning the [place] language, technical skills, or developing parenting skills)? [...] Description 05/04/2025 3:00 PM EDT Office Visit [facility] Orthopedics & Sports Medicine [address] [place] [phone] Jessica Hernandez PA-C [address] [place] [address] Orthopedics & Sports Medicine, [facility] [place] [address] 06/19/2025 8:45 AM EST Office Visit [facility] Internal Medicine [address] [place] [address] Abebe Vallejo MD [address] [place] [address] documented as of this encounter Results * XR HAND 3 OR MORE VIEWS (BILATERAL) (09/12/2022 3:32 PM EST) Anatomical Region Laterality Modality Hand Left Computed Radiogr aphy 09/13/2022 11:2 9 PM EST Impressions 09/13/2022 11:32 PM EST Radial and peripheral predominant joint space narrowing, most pronounced at the bases of the thumbs, in a pattern most typical for osteoarthritis. No periarticular bone loss or erosion to suggest superimposed inflammatory arthropathy. Narrative 09/13/2022 11:32 PM EST XR HAND 3 OR MORE VIEWS (BILATERAL) COMPARISON: None FINDINGS: RIGHT HAND: Mild soft tissue swelling at the PIP joints. No subluxation. Osseous mineralization preserved. Severe joint space narrowing with subchondral sclerosis and bony proliferative change at the first CMC joint. Moderate joint space narrowing at the STT joint. Mild to moderate joint space narrowing at the first MCP, and the DIP joints. No periarticular bone loss or erosion. LEFT HAND: Mild soft tissue swelling at the PIP joints. No subluxation. Osseous mineralization preserved. Severe joint space narrowing with subchondral sclerosis and bony proliferative change at the first CMC joint. Mild to moderate joint space narrowing at the STT , first, second, and third MCP joints, and 2nd-4th PIP joints. No periarticular bone loss or erosion. Procedure Note Sorin Stephens MD - 09/13/2022 XR HAND 3 OR MORE VIEWS (BILATERAL) COMPARISON: None FINDINGS: RIGHT HAND: Mild soft tissue swelling at the PIP joints. No subluxation.Osseous mineralization preserved. Severe joint space narrowing withsubchondral sclerosis and bony proliferative change at the first CMCjoint. Moderate joint space narrowing at the STT joint. Mild to moderatejoint space narrowing at the first MCP, and the DIP joints. Noperiarticular bone loss or erosion. LEFT HAND: Mild soft tissue swelling at the PIP joints. No subluxation.Osseous mineralization preserved. Severe joint space narrowing withsubchondral sclerosis and bony proliferative change at the first CMCjoint. Mild to moderate joint space narrowing at the STT , first, second,and third MCP joints, and 2nd-4th PIP joints. No periarticular bone lossor erosion. IMPRESSION: Radial and peripheral predominant joint space narrowing, most pronouncedat the bases of the thumbs, in a pattern most typical forosteoarthritis. No periarticular bone loss or erosion to suggest superimposed inflammatoryarthropathy. 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 Narrative 09/13/2022 11:28 PM EST XR SHOULDER 2 OR MORE VIEWS (RIGHT) COMPARISON: SHOULDER [facility] FINDINGS: Bones slightly demineralized. No acute fracture or dislocation. Severe glenohumeral joint space narrowing with subchondral sclerosis, bone on bone contact, and exuberant bony proliferative change. Moderate to severe acromioclavicular joint space narrowing with subchondral sclerosis and bony proliferative change. Procedure Note Sorin Stephens MD - 09/13/2022 XR SHOULDER 2 OR MORE VIEWS (RIGHT) COMPARISON: SHOULDER [facility] FINDINGS: Bones slightly demineralized. No acute fracture or dislocation. Severeglenohumeral joint space narrowing with subchondral sclerosis, bone onbone contact, and exuberant bony proliferative change. Moderate to severeacromioclavicular joint space narrowing with subchondral sclerosis andbony proliferative change. IMPRESSION: Severe glenohumeral and moderate to severe acromioclavicular jointosteoarthritis, progressed from 2013. Al Mcgowan DO IMG XR UPPER EXTREMITY Final Result documented in this encounter Visit Diagnoses Diagnosis Injury of muscle or tendon of right rotator cuff Hip pain Pain in joint, pelvic region and thigh Pain Generalized pain Injury of muscle or tendon of right rotator cuff Pain Generalized pain documented in this encounter Care Teams Fast Food Attendant Relationship Specialty Start Date End Date Abebe Vallejo MD [address] [place] [phone] [email or web address] PCP - General Internal Medicine 10/19/20 documented as of this encounter Additional Source Comments The information contained in this document represents components of the legal health record. It is not the complete legal health record.[facility]
== END 2025-05-03 14:04 | disposition home or self-care (01) ==
LOC: HO.HUSH 13:20
PROVIDERS: Visit Provider Urology
DX: Z13.9 Encounter for screening, unspecified (principal); N50.819 Testicular pain, unspecified
CPT/HCPCS: 99203

== ENCOUNTER → 2025-05-03 13:19 | Outpatient (BNVA) | payer OTHER, SELFPAY | PROVIDERS: Visit Provider Urology | DX: N50.819 Testicular pain, unspecified (principal) | CPT/HCPCS: 81003 ==